=== PATIENT | male | born 1965 | race Caucasian/White ===

== ENCOUNTER 2019-11-10 12:36 | Outpatient (CLI) | payer OTHER, SELFPAY ==
--- NOTE | ~2019-11-10 | DEXA_ITS ---
Bone Density Report Name: Jorden Craig Age: 54 Sex: Male Ethnicity: White Date of : 1965 Indication: height loss; asthma or emphysema; Referring Provider: Saad, Kimberly Vidal Study: Bone densitometry was performed. Exam Date: November 10, 2019 Accession number: [id number] Bone Density: Region BMD T-score Z-score Classification AP Spine (L1-L4) 1.191 0.9 1.4 Normal Femoral Neck (Left) 0.812 -0.9 0.0 Normal Total Hip (Left) 1.135 0.7 1.1 Normal Total Hip Bilateral Avg 1.086 0.3 0.8 Normal Femoral Neck (Right) 0.812 -0.9 0.0 Normal Total Hip (Right) 1.035 0.0 0.4 Normal World Health Organization criteria for BMD impression classify patients as: Normal (T-score at or above -1.0), Osteopenia (T-score between -1.0 and -2.5), or Osteoporosis (T-score at or below -2.5). 10-year Fracture Risk: FRAX not reported because: All T-scores for Spine Total, Hip Total, Femoral Neck at or above -1.0 Clinical Information Provided by Patient: Smokes Has used the following medications: Vitamin D Has the following medical conditions: Asthma or Emphysema Patient maximum height was 73 No regular weight bearing exercise Impression: The patient has normal bone mass. The patient has risk factors, including: smoking. Discussion: BONE DENSITY IS ABOVE THE MINIMUM DESIRABLE LEVEL AT ALL SKELETAL SITES TESTED. This patient?s bone mineral density is above the minimum desirable level (T-score -1.0 or better) at all sites measured. The patient should follow a healthful lifestyle (good nutrition with adequate calcium and vitamin D, and appropriate weight-bearing exercise). Follow-Up: Consider repeating this study in 5 years or sooner if there is some new clinical indication. Reported by: [facility] on 11/10/2019 1:09:00 PM. Reviewed, dictated and finalized at location [facility]ar[facility]
== END 2019-11-10 12:37 | disposition home or self-care (01) ==
LOC: ANHIMG 12:39
PROVIDERS: PCP Family Medicine; Visit Provider Family Medicine
DX: M85.80 Other specified disorders of bone density and structure, unspecified site (principal)
CPT/HCPCS: 77080

== ENCOUNTER 2020-02-07 11:59 | Outpatient (CLI) | payer OTHER, SELFPAY ==
--- NOTE | ~2020-02-07 | MMUS_ITS ---
EXAMINATION: MM diagnostic ghanshyam RT w tom, US breast RT complete HISTORY: Right breast lump TECHNIQUE: Additional 3-D tomosynthesis images of the right breast were performed and synthetic 2-D i mages were generated. Comparison left MLO view performed. CAD analysis was submitted and interpreted. High resolution right breast ultrasound was performed. COMPARISON: None FINDINGS: MAMMOGRAPHIC FINDINGS: Breast composed of scattered areas of fibroglandular density. There is asymmetric right-sided gynecom astia. No discrete mass, architectural distortion or suspicious calcifications are identified. ULTRASOUND: Right breast ultrasound: There is prominent breast bud in the subareolar location of the right breast without discrete mass. No abnormal vascularity. IMPRESSION: 1. Probable benign asymmetric right gynecomastia. No evidence for malignancy. 2. Recommend 6 month follow-up right mammogram. BI-RADS category 3, probably benign findings. Reviewed, dictated and finalized at location A. IMPRESSION: 1. Probable benign asymmetric right gynecomastia. No evidence for malignancy. 2. Recommend 6 month follow-up right mammogram. BI-RADS category 3, probably benign findings.
== END 2020-02-07 12:00 | disposition home or self-care (01) ==
LOC: ANHIMG 12:09
PROVIDERS: PCP Family Medicine; Visit Provider Family Medicine
DX: N63.10 Unspecified lump in the right breast, unspecified quadrant (principal); M85.80 Other specified disorders of bone density and structure, unspecified site
CPT/HCPCS: 76641; 77061; 77065; G0279

== ENCOUNTER 2020-03-14 11:53 | Outpatient (CLI) | payer OTHER, SELFPAY ==
[2020-03-16 18:51] LABS: HIV 1 RNA PCR <1.30 Log cps/mL; HIV 1 RNA PCR <20 Copies/mL
== END 2020-03-14 11:54 | disposition home or self-care (01) ==
PROVIDERS: PCP Family Medicine; Visit Provider Internal Medicine Infectious Disease
DX: B20 Human immunodeficiency virus [HIV] disease (principal)
CPT/HCPCS: 36415; 87536

== ENCOUNTER 2020-05-10 12:30 | Outpatient (CLI) | payer OTHER, SELFPAY ==
[2020-05-13 11:30] LABS: CD19 Percentage 6 % (6-29); CD19, Absolute 98 cells/uL (110-660); CD3, Absolute 1181 cells/uL (840-3060); CD3, Percentage 78 % (57-85); CD3- CD16+ CD56+ 12 % (4-25); CD3- CD16+ CD56+ 184 cells/uL (70-760); CD4, Absolute 842 cells/uL (490-1740); CD4, Percentage 58 % (30-61); CD4/CD8 Ratio 2.92 (0.86-5.00); CD8, Absolute 288 cells/uL (180-1170); CD8, Percentage 20 % (12-42); Lymphocytes, Absolute 1513 cells/uL (850-3900)
== END 2020-05-10 12:31 | disposition home or self-care (01) ==
PROVIDERS: PCP Family Medicine; Visit Provider Internal Medicine Infectious Disease
DX: B20 Human immunodeficiency virus [HIV] disease (principal)
CPT/HCPCS: 36415; 86360

== ENCOUNTER 2020-09-07 10:49 | Outpatient (CLI) | payer OTHER, SELFPAY ==
[2020-09-12 19:59] LABS: HIV 1 RNA PCR 1.63 Log cps/mL; HIV 1 RNA PCR 42 Copies/mL
== END 2020-09-07 10:50 | disposition home or self-care (01) ==
PROVIDERS: PCP Family Medicine; Visit Provider Internal Medicine Infectious Disease
DX: B20 Human immunodeficiency virus [HIV] disease (principal)
CPT/HCPCS: 36415; 87536

== ENCOUNTER 2020-09-15 07:48 | Outpatient (CLI) | payer OTHER, SELFPAY ==
[2020-09-15 08:19] LABS: Alanine Aminotransferase 12 U/L (4-50); Albumin Level 4.3 g/dL (3.5-5.1); Alkaline Phosphatase 84 U/L (38-126); Anion Gap 6 mmol/L (8-16); Aspartate Amino Transferase 25 U/L (17-59); Bilirubin,Total 0.5 mg/dL (0.2-1.3); Blood Urea Nitrogen 17 mg/dL (9-20); Calcium 9.8 mg/dL (8.4-10.2); Carbon Dioxide 28 mmol/L (22-30); Chloride 103 mmol/L (98-107); Cholesterol 221 mg/dL (0-200); Estimated Glomerular Filt Rate 57; Glucose 172 mg/dL (75-110); HDL Direct 32 mg/dL; Potassium 4.1 mmol/L (3.4-5.0); Sodium 137 mmol/L (137-145); Triglycerides 325 mg/dL (<150)
[2020-09-15 08:30] LABS: LDL Cholesterol Direct 151 mg/dL
--- NOTE | 2020-09-15 08:40 | EST_ITS ---
Patient Info Name: Jorden Craig Age: 55 years : 1965 Gender: Male Ht: 72 in Wt: 243 lbs BSA: 2.40 m2 Exam Date: 09/15/2020 8:53 AM Exam Location: [facility] Patient Status: Outpatient Admit Date: 09/15/2020 Staff Ordering Physician: Martin Duncan DO Attending Provider: Martin Duncan DO Exercise Technologist: Ankita Ceballos RDCS Exercise Physician: Martin Duncan DO Exam Type: CA stress test treadmill Study Info Indications R07.9 - Chest pain, unspecified A treadmill exercise stress test was performed. Summary 1. 1. Negative [facility] exercise stress test for ischemic ST changes by ECG criteria. He achieved only 75% MPHR for age group which reduces sensitivity of the test. 2. 2. Reduced functional capacity, achieving 7 METs of workload. 3. 3. Appropriate HR response to exercise. 4. 4. Appropriate HR recovery at 1 minute post exercise. 5. 5. No imaging with stress testing. 6. 6. Patient informed of the above results. Protocol: [facility] ECG Details Stage: REST Duration (min): 8 min : 8 sec Speed (mph): 0.0 Grade (%): 0 HR (bpm): 70 SBP (mmHg): 105 DBP (mmHg): 61 METS: --- Stage: REST Duration (min): 10 min : 44 sec Speed (mph): 0.0 Grade (%): 0 HR (bpm): 82 SBP (mmHg): 105 DBP (mmHg): 61 METS: --- Stage: STAGE 1 Duration (min): 1 min : 0 sec Speed (mph): 1.7 Grade (%): 10 HR (bpm): 96 SBP (mmHg): 105 DBP (mmHg): 61 METS: --- Stage: STAGE 1 Duration (min): 2 min : 0 sec Speed (mph): 1.7 Grade (%): 10 HR (bpm): 104 SBP (mmHg): 105 DBP (mmHg): 61 METS: --- Stage: STAGE 1 Duration (min): 3 min : 0 sec Speed (mph): 1.7 Grade (%): 10 HR (bpm): 106 SBP (mmHg): 134 DBP (mmHg): 68 METS: --- Stage: STAGE 2 Duration (min): 1 min : 0 sec Speed (mph): 2.5 Grade (%): 12 HR (bpm): 116 SBP (mmHg): 134 DBP (mmHg): 68 METS: --- Stage: STAGE 2 Duration (min): 2 min : 0 sec Speed (mph): 2.5 Grade (%): 12 HR (bpm): 125 SBP (mmHg): 170 DBP (mmHg): 68 METS: --- Stage: STAGE 2 Duration (min): 2 min : 0 sec Speed (mph): 2.5 Grade (%): 12 HR (bpm): 125 SBP (mmHg): 170 DBP (mmHg): 68 METS: --- Stage: RECOVERY Duration (min): 0 min : 59 sec Speed (mph): 0.0 Grade (%): 0 HR (bpm): 107 SBP (mmHg): 170 DBP (mmHg): 68 METS: --- Stage: RECOVERY Duration (min): 1 min : 59 sec Speed (mph): 0.0 Grade (%): 0 HR (bpm): 92 SBP (mmHg): 170 DBP (mmHg): 68 METS: --- Stage: RECOVERY Duration (min): 2 min : 59 sec Speed (mph): 0.0 Grade (%): 0 HR (bpm): 79 SBP (mmHg): 170 DBP (mmHg): 68 METS: --- Stage: RECOVERY Duration (min): 3 min : 59 sec Speed (mph): 0.0 Grade (%): 0 HR (bpm): 87 SBP (mmHg): 170 DBP (mmHg): 68 METS: ---
--- NOTE | 2020-09-15 08:41 | ECHO_ITS ---
Patient Info Name: Jorden Craig Age: 55 years : 1965 Gender: Male Ht: 72 in Wt: 243 lbs BSA: 2.40 m2 HR: 70 bpm BP: 107 / 77 mmHg Technical Quality: Good Exam Date: 09/15/2020 9:34 AM Exam Location: [facility] Patient Status: Outpatient Admit Date: 09/15/2020 Staff Ordering Physician: Martin Duncan DO Deboner: Tayo Jackson, COLETTE, RT Attending Provider: Martin Duncan DO Referring Physician: Dakota BERUMEN; Exam Type: CA echo dop color flow w con Study Info Indications R06.00 - Dyspnea, unspecified Complete two-dimensional, color flow and Doppler transthoracic echocardiogram is performed. Strain analysis performed. Summary 1. Complete two-dimensional, color flow and Doppler transthoracic echocardiogram is performed. 2. Left ventricular chamber dimension is normal. 3. Left ventricular systolic function is normal, estimated at 60-65%. 4. There is moderately increased left ventricular wall thickness. 5. The left ventricular diastolic function is normal. 6. E/e' 10 is minimally elevated. 7. Global longitudinal strain is abnormal at -14.0%. 8. Severe lipomatous hypertrophy of the atrial septum. 9. There is trace pulmonic regurgitation. Left Ventricle Global longitudinal strain is abnormal at -14.0%. E/e' 10 is minimally elevated. Left ventricular chamber dimension is normal. Left ventricular systolic function is normal, estimated at 60-65%. There is moderately increased left ventricular wall thickness. The left ventricular diastolic function is normal. Right Ventricle Right ventricular chamber dimension is normal. Right ventricular systolic function is normal. Left Atria Left atrial chamber dimension is normal. Right Atria Right atrial chamber dimension is normal. Atrial Septum Severe lipomatous hypertrophy of the atrial septum. Aortic Valve The aortic valve is trileaflet. There is no aortic valve stenosis. There is no aortic valve regurgitation. Pulmonic Valve There is trace pulmonic regurgitation. Mitral Valve There is no mitral valve stenosis. There is no mitral valve regurgitation. Tricuspid Valve There is no tricuspid valve regurgitation. Pericardium/Pleural There is no pericardial effusion. Inferior Vena Cava Normal inferior vena cava with >50% collapse upon inspiration consistent with normal right atrial pressure, 5 mmHg. Aorta The aortic root size at the sinus of Valsalva is normal. Left Ventricular Outflow Tract Name Value Normal LVOT 2D LVOT Diameter 1.97 cm LVOT Doppler LVOT Peak Velocity 87.09 cm/s LVOT Peak Gradient 3 mmHg LVOT Mean Gradient 2 mmHg LVOT VTI 19.37 cm LVOT VTI/AV VTI Ratio 0.85 LVOT Stroke Volume 58.88 ml LVOT CO 4.20 l/min LVOT CI 1.75 L/min/m2 Mitral Valve Name Value
--- NOTE | 2020-09-15 09:41 | ECG_ITS ---
Measurements Intervals [place] Rate: 69 P: 37 DC: 171 QRS: 51 QRSD: 106 T: 40 QT: 404 QTc: 433 Interpretive Statements SINUS RHYTHM NORMAL ECG Electronically Signed On 09-15-2020 10:41:11 [employer] by Martin Duncan D.O.
== END 2020-09-15 07:49 | disposition home or self-care (01) ==
PROVIDERS: PCP Family Medicine; Visit Provider Internal Medicine Cardiovascular Disease
DX: E78.00 Pure hypercholesterolemia, unspecified (principal); R07.9 Chest pain, unspecified
CPT/HCPCS: 36415; 80053; 80061; 93005; 93017; 93306; C8929

== ENCOUNTER 2020-12-06 13:30 | Outpatient (CLI) | payer OTHER, SELFPAY ==
[2020-12-06 14:02] LABS: Alanine Aminotransferase 13 U/L (4-50); Albumin Level 4.6 g/dL (3.5-5.1); Alkaline Phosphatase 81 U/L (38-126); Anion Gap 7 mmol/L (8-16); Aspartate Amino Transferase 24 U/L (17-59); Bilirubin,Total 0.4 mg/dL (0.2-1.3); Blood Urea Nitrogen 16 mg/dL (9-20); Carbon Dioxide 28 mmol/L (22-30); Chloride 105 mmol/L (98-107); Cholesterol 205 mg/dL (0-200); Estimated Glomerular Filt Rate 49; Glucose 106 mg/dL (75-110); HDL Direct 38 mg/dL; Sodium 140 mmol/L (137-145); Triglycerides 320 mg/dL (<150)
[2020-12-06 14:13] LABS: LDL Cholesterol Direct 118 mg/dL
== END 2020-12-06 13:31 | disposition home or self-care (01) ==
PROVIDERS: PCP Family Medicine; Visit Provider Internal Medicine Cardiovascular Disease
DX: E78.00 Pure hypercholesterolemia, unspecified (principal)
CPT/HCPCS: 36415; 80053; 80061

== ENCOUNTER 2021-03-20 13:52 | Outpatient (CLI) | payer OTHER, SELFPAY ==
[2021-03-22 15:48] LABS: HIV 1 RNA PCR <1.30 Log cps/mL; HIV 1 RNA PCR <20 Copies/mL
== END 2021-03-20 13:53 | disposition home or self-care (01) ==
PROVIDERS: PCP Family Medicine; Visit Provider Internal Medicine Infectious Disease
DX: B20 Human immunodeficiency virus [HIV] disease (principal)
CPT/HCPCS: 36415; 87536

== ENCOUNTER 2021-09-10 13:11 | Outpatient (CLI) | payer OTHER, SELFPAY ==
[2021-09-12 17:01] LABS: HIV 1 RNA PCR <1.30 Log cps/mL; HIV 1 RNA PCR <20 Copies/mL
== END 2021-09-10 13:12 | disposition home or self-care (01) ==
LOC: ANHLAB 13:14
PROVIDERS: PCP Family Medicine; Visit Provider Internal Medicine Infectious Disease
DX: B20 Human immunodeficiency virus [HIV] disease (principal)
CPT/HCPCS: 36415; 87536

== ENCOUNTER 2022-07-29 14:26 | Outpatient (CLI) | payer OTHER, SELFPAY ==
--- NOTE | 2022-07-29 18:01 | WPDPFTINT ---
PFT Procedure Performed PFT Procedure Performed Plethysmography (Lung Vol) Diffusing Cap (DLCO) Flow Vol Loop Spirometry w/o Bronchodil PFT Interpretation This is a pulmonary function test with spirometry, plethysmography and diffusing capacity. The test was performed and results interpreted in accordance with the 2019 and 2005 ATS/ERS Task Force guidelines respectively using the Global Lung Function Initiative-2012 reference equations. Patient demonstrated good effort and cooperation. Reproducibility criteria were met. The quality of the spirometry maneuver was Grade A. Findings: Spirometry: There is decreased maximal expiratory airflow at low lung volumes with a mildly concave expiratory flow tracing. The contour the inspiratory flow tracing is truncated. The FVC is 2.91 L, 57% predicted. The FEV1 is 2.02 L, 51% predicted. This FEV1: FVC ratio 69%. Plethysmography: The total lung capacity is 3.81 L, 52% predicted. The functional residual capacity is 2.18 L, 56% predicted. The residual volume is 0.90 L, 39% predicted. Diffusing capacity: The diffusing capacity unadjusted for hemoglobin and carboxyhemoglobin is 16.0, 53% predicted. The diffusing capacity adjusted for alveolar volume is 4.13, 98% predicted. In comparison to previous pulmonary function test on 12/16/2018 the pre bronchodilator FVC has increased from 2.14 L to 2.91 L. The pre bronchodilator FEV1 is increased from 1.06 L to 2.02 L. The total lung capacity is unchanged from 4.43 L to 3.81 L. The functional residual capacity is decreased from 2.80 L to 2.18 L. The residual volume is decreased from 2.06 L to 0.90 L. The diffusing capacity unadjusted for hemoglobin and carboxyhemoglobin has increased from 10.9 to 16.0. The diffusing capacity adjusted for alveolar volume has decreased from 6.78 to 4.13. Impression: There is a combined obstructive and restrictive ventilatory abnormality. There are no guidelines to assign the severity of obstruction and restriction with a combined abnormality. In my opinion, given the mildly concave expiratory flow tracing and normal FEV1: FVC ratio and moderate restrictive abnormality I would state there is a mild obstructive abnormality and a moderate restrictive abnormality resulting in a moderately severe decrease in the FEV1. The diffusing capacity unadjusted for hemoglobin and carboxyhemoglobin is moderately decreased and normalizes when adjusted for alveolar volume. When compared to the previous pulmonary function testing on 12/16/2018 there has been a greater than anticipated time dependent decrease in the functional residual capacity, residual volume and diffusing capacity adjusted for alveolar volume with a greater than anticipated time dependent increase in the FVC, FEV1 and diffusing capacity unadjusted for hemoglobin and carboxyhemoglobin. There has been no significant change in the total lung capacity. Clinical correlation is recommended.
== END 2022-07-29 14:27 | disposition home or self-care (01) ==
LOC: ANHPFT 14:28
PROVIDERS: PCP Family Medicine; Visit Provider Physician Assistant
DX: F10.10 Alcohol abuse, uncomplicated (principal); R94.2 Abnormal results of pulmonary function studies
CPT/HCPCS: 94375; 94726; 94729

== ENCOUNTER 2022-10-08 13:24 | Emergency (ER) | payer OTHER, SELFPAY ==
[2022-10-08 13:30] VITALS: BP 133/87; PULSE 82; RESP 20; TEMP 36.4; O2SAT 96
[2022-10-08 15:32] VITALS: BP 157/88; PULSE 86; RESP 18; TEMP 36.3; O2SAT 98
--- NOTE | 2022-10-08 17:43 | ED.GENADULT ---
HPI - General Adult General Chief complaint: Dental/Oral Stated complaint: infected tooth Time Seen by Provider: 10/08/22 17:34 History of Present Illness HPI narrative: 57-year-old male with history of chronic dental pain presented to the department for evaluation of worsening left-sided dental pain and facial swelling. Patient states he has attempted to obtain follow-up with a dentist but states that this will not occur until January. Patient reports he does have history of dental caries. Patient denies any difficulty breathing or swallowing. Patient reports facial pain started just yesterday. Related Data Home Medications Medication Instructions Recorded Confirmed albuterol sulfate 90 mcg/actuation 2 puff inhalation Q4H PRN 09/06/20 12/06/20 aerosol inhaler (Ventolin HFA) aspirin 81 mg tablet,delayed 81 mg PO DAILY 09/06/20 12/06/20 release (Adult Low Dose Aspirin) canagliflozin 300 mg tablet 300 mg PO DAILY 09/06/20 12/06/20 (Invokana) fenofibrate nanocrystallized 145 145 mg PO DAILY 09/06/20 12/06/20 mg tablet naproxen 500 mg tablet 500 mg PO BID 09/06/20 12/06/20 zolpidem 10 mg tablet 10 mg PO ONCE 09/06/20 12/06/20 abacavir 600 mg-dolutegravir 50 1 tablet PO DAILY 09/07/20 12/06/20 mg-lamivudine 300 mg tablet (Triumeq) psyllium husk 0.4 gram capsule 0.4 g PO .every other day 09/07/20 12/06/20 (Fiber (psyllium husk)) triamterene 37.5 1 cap PO DAILY 09/07/20 12/06/20 mg-hydrochlorothiazide 25 mg capsule Allergies Allergy/AdvReac Type Severity Reaction Status Date / Time No Known Allergies Allergy Verified 09/20/22 14:51 Review of Systems Review of Systems: CONSTITUTIONAL: Denies fever, chills, or sweats. EYES: Denies visual changes, redness, or discharge. ENT: See HPI CARDIOVASCULAR: Denies chest pain, palpitations, or edema. RESPIRATORY: Denies cough or dyspnea. GASTROINTESTINAL: Denies abdominal pain, nausea, vomiting, or diarrhea. GENITOURINARY: Denies dysuria or hematuria. SKIN: Denies rash or itching. MUSCULOSKELETAL: Denies back pain, joint pain, or myalgia. NEUROLOGIC: Denies headache, numbness, or weakness. PSYCHIATRIC: Denies anxiety or depression. [facility] Past Medical History Medical History (Updated 10/09/22 @ 00:00 by Devon Bethea) Chest pain Hernia Human immunodeficiency virus infection Hypercholesterolemia Psoriasis Surgical History Surgical History (System 09/20/22 @ 14:51 by Fernando Garber) History of colonoscopy Family History Family History (System 09/20/22 @ 14:51 by Fernando Garber) Other Heart disease Cancer Mother Heart disease Lung disease Mother Family history of chronic obstructive pulmonary disease Father Family history of primary malignant neoplasm of liver Malignant neoplasm of prostate Social History Social History (System 09/20/22 @ 14:51 by Fernando Garber) Smoking packs per day: 0.5 Smoking cigarettes per day: 10.0 Years smoked: 35 Smoking pack-years: 17.50 Smoking status: Current every day smoker Alcohol intake: former Exam Narrative: APPEARANCE: Well appearing, no pain, no distress, well-nourished. HEAD: normocephalic, atraumatic. Left lower facial swelling. No submandibular swelling. EYES: PERRLA/EOMI, conjunctivae clear. NOSE: Normal no drainage EARS:TMS clear with good light reflex. THROAT: Pharynx clear, no exudate. NECK: Supple. No adenopathy, no masses. MUSCULOSKELETAL: Moves all extremities. Strength/ROM intact, No edema, No calf tenderness. NEURO: Alert. Cranial nerves II through XII intact. Grossly intact SKIN: Warm, dry. Normal Color Course Course Emergency Course: No visualized dental abscess this. Patient does have some left facial swelling over the lower mandible. No some tubular swelling. Suspect dental abscess. Differential diagnosis also considered was Ludewig's angina, parotiditis and facial cellulitis. Patient was started on clindamycin in the emergency department and encour
[2022-10-08] MEDS: CLINDAMYCIN HCL 150 MG CAP PO (17:47)
[2022-10-08] MEDS: HYDROcodone/acetaminophen (*CRX) 5-325 MG TABLET 1 TAB PO (17:47)
== END 2022-10-08 18:10 | disposition home or self-care (01) ==
PROVIDERS: Emergency Provider Emergency Medicine; PCP Physician Assistant
DX: K04.7 Periapical abscess without sinus (principal); E78.00 Pure hypercholesterolemia, unspecified; Z21 Asymptomatic human immunodeficiency virus [HIV] infection status; Z79.899 Other long term (current) drug therapy; Z79.82 Long term (current) use of aspirin
CPT/HCPCS: 99283; A9270

== ENCOUNTER 2022-10-09 23:22 | Emergency (ER) | payer OTHER, SELFPAY ==
--- NOTE | ~2022-10-09 | CT_ITS ---
CT Facial Bones Clinical Indication: Dental abscess Technique: Following intravenous demonstration of 100 cc of Omnipaque 350 contrast material, contiguo us axial scans were obtained through the facial bones followed by coronal and sagittal reconstruction s. Dose reduction technique was used on this scan by utilizing automated exposure control and iterati ve reconstruction technique. The dose-length product (DLP) was 969.64 mGy-cm. Findings: No fractures are identified. The visualized paranasal sinuses are clear. Intraorbital soft tissues appear normal. There is subcutaneous soft tissue edema and early phlegmonous change along the left mandibular region extending to the chin and left submental region. Shotty lymph nodes are present. No discrete abscess clearly identified. Parotid and submandibular glands are unremarkable. Parapharyngeal fat preserved bilaterally. No peritonsillar abscess. Thyroid gland unremarkable. Lung apices are unremarkable. Impression: Subcutaneous soft tissue edema and swelling with probable early phlegmonous change along the left man dibular region extending to the chin, compatible with cellulitis/soft tissue infection. No discrete, mature abscess evident. Reviewed, dictated and finalized at location . GATION ATTORNEY Impression: Subcutaneous soft tissue edema and swelling with probable early phlegmonous david nge along the left mandibular region extending to the chin, compatible with gabriella lulitis/soft tissue infection. No discrete, mature abscess evident.
[2022-10-09 23:27] VITALS: BP 115/84; PULSE 101; RESP 18; TEMP 36.6; O2SAT 97
[2022-10-10 01:00] VITALS: BP 150/84; PULSE 99; RESP 14; O2SAT 97
--- NOTE | 2022-10-10 01:38 | ED.GENADULT ---
HPI - General Adult General Chief complaint: Dental/Oral <Mague Sagastume APRN - Last Filed: 10/10/22 04:06> Stated complaint: toothache <Mague Sagastume APRN - Last Filed: 10/10/22 04:06> Time Seen by Provider: 10/10/22 00:58 <Mague Sagastume APRN - Last Filed: 10/10/22 04:06> History of Present Illness HPI narrative: Mr. Craig <Mague Sagastume APRN - Last Filed: 10/10/22 04:06> Related Data Home medications: Home Medications Medication Instructions Recorded Confirmed albuterol sulfate 90 mcg/actuation 2 puff inhalation Q4H PRN 09/06/20 12/06/20 aerosol inhaler (Ventolin HFA) aspirin 81 mg tablet,delayed 81 mg PO DAILY 09/06/20 12/06/20 release (Adult Low Dose Aspirin) canagliflozin 300 mg tablet 300 mg PO DAILY 09/06/20 12/06/20 (Invokana) fenofibrate nanocrystallized 145 145 mg PO DAILY 09/06/20 12/06/20 mg tablet naproxen 500 mg tablet 500 mg PO BID 09/06/20 12/06/20 zolpidem 10 mg tablet 10 mg PO ONCE 09/06/20 12/06/20 abacavir 600 mg-dolutegravir 50 1 tablet PO DAILY 09/07/20 12/06/20 mg-lamivudine 300 mg tablet (Triumeq) psyllium husk 0.4 gram capsule 0.4 g PO .every other day 09/07/20 12/06/20 (Fiber (psyllium husk)) triamterene 37.5 1 cap PO DAILY 09/07/20 12/06/20 mg-hydrochlorothiazide 25 mg capsule <Mague Sagastume APRN - Last Filed: 10/10/22 04:06> Allergies/adverse reactions: Allergies Allergy/AdvReac Type Severity Reaction Status Date / Time No Known Allergies Allergy Verified 09/20/22 14:51 <Mague Sagastume APRN - Last Filed: 10/10/22 04:06> [facility] Past Medical History Medical History: Medical History (Updated 10/11/22 @ 00:00 by Devon Bethea) Chest pain Hernia Human immunodeficiency virus infection Hypercholesterolemia Psoriasis <Mague SagastumeKENA - Last Filed: 10/10/22 04:06> Surgical History Surgical History: Surgical History (System 09/20/22 @ 14:51 by Fernando Garber) History of colonoscopy <Mague LangstonKENA dick - Last Filed: 10/10/22 04:06> Family History Family History: Family History (System 09/20/22 @ 14:51 by Fernando Garber) Other Heart disease Cancer Mother Heart disease Lung disease Mother Family history of chronic obstructive pulmonary disease Father Family history of primary malignant neoplasm of liver Malignant neoplasm of prostate <Mague AvilaKENA whitfield - Last Filed: 10/10/22 04:06> Social History Social History: Social History (System 09/20/22 @ 14:51 by Fernando Garber) Smoking packs per day: 0.5 Smoking cigarettes per day: 10.0 Years smoked: 35 Smoking pack-years: 17.50 Smoking status: Current every day smoker Alcohol intake: former <Mague ChamberlainDarwin AustinKENA whitfield - Last Filed: 10/10/22 04:06> Course Course Emergency Course: Patient returned with worsening erythema and swelling to his left jaw. Patient states that he has been taking his clindamycin at home as ordered. Patient denies any fever or chills. CT of soft tissue has been ordered and 1 dose of IV clindamycin has been given. CT is pending at this time and if negative patient can be discharged home to finish his remaining clindamycin. <Mague ChamberlainDarwin AustinKENA whitfield - Last Filed: 10/10/22 04:06> Reevaluation(s) Reevaluation #1: Patient does feel improved with treatment. Patient was treated with additional IV clindamycin. CT scan showed a phlegmon but no definitive abscess. Patient has only been on antibiotics for less than 24 hours. Patient was updated the results of his CT scan and was encouraged to have close follow-up. Patient was also encouraged to return to the emergency department if he had any worsening symptoms. All questions and concerns were addressed. Patient was well-appearing at time of discharge. <Jimmy Yun MD - Last Filed: 10/17/22 07:04> Vital Signs Vital signs: Vital Signs Temperature 97.8 F 10/09/
[2022-10-10 02:00] VITALS: BP 105/87; PULSE 84; RESP 14; O2SAT 94
[2022-10-10] MEDS: CLINDAMYCIN 600 MG/D5W 50 ML 600 MG/50 ML PIGGYBACK 100 MG IVPB (02:49)
[2022-10-10 03:00] VITALS: BP 110/89; PULSE 80; RESP 19; O2SAT 99
[2022-10-10 03:15] LABS: Basophils Percent Auto 0.3 % (0.2-1.2); Eosinophils Percent Auto 0.3 % (0-4.4); Hematocrit 42.8 % (42.0-52.0); Hemoglobin 14.5 g/dL (14.0-18.0); Immature Granulocyte Absolute 0.05 K/mm3 (0.00-0.031); Immature Granulocyte Percent A 0.4 % (0-0.5); Lymphocytes Absolute Auto 1.43 K/mm3 (0.9-3.2); Lymphocytes Percent Auto 12.1 % (18.3-44.2); Mean Corpuscular HGB Conc 33.9 g/dl (32-36); Mean Corpuscular Volume 91.5 fl (80-100); Mean Platelet Volume 8.8 fl (7.4-10.4); Monocytes Absolute Auto 0.7 K/mm3 (0.1-0.6); Monocytes Percent Auto 5.9 % (2.6-8.5); Neutrophils Absolute Auto 9.5 K/mm3 (1.3-6.7); Platelet Count Result 203 k/mm3 (150-375); Red Blood Count 4.68 M/mm3 (4.6-6.20); Red Cell Distribution Width 13.2 % (11.5-14.5); White Blood Count 11.8 K/mm3 (4.5-10.0)
[2022-10-10 03:29] LABS: Anion Gap 9 mmol/L (8-16); Blood Urea Nitrogen 15 mg/dL (9-20); Calcium 9.4 mg/dL (8.4-10.2); Carbon Dioxide 26 mmol/L (22-30); Chloride 97 mmol/L (98-107); Estimated CRCL calculation 80 ml/min; Estimated Glomerular Filt Rate > 60; Glucose 158 mg/dL (65-110); Potassium 3.5 mmol/L (3.4-5.0); Sodium 132 mmol/L (137-145)
[2022-10-10] MEDS: HYDROmorphone HCL INJ (*CRX) 1 MG/ML SYR 0.5 MG IV PUSH (05:29)
[2022-10-10 05:45] VITALS: BP 136/78; PULSE 90; RESP 12; O2SAT 99
== END 2022-10-10 05:45 | disposition home or self-care (01) ==
PROVIDERS: Emergency Provider Nurse Practitioner Adult Health; PCP Physician Assistant
DX: R22.0 Localized swelling, mass and lump, head (principal); K03.81 Cracked tooth; K02.9 Dental caries, unspecified; E78.00 Pure hypercholesterolemia, unspecified; Z21 Asymptomatic human immunodeficiency virus [HIV] infection status; Z79.82 Long term (current) use of aspirin; Z79.899 Other long term (current) drug therapy; Z79.84 Long term (current) use of oral hypoglycemic drugs; F17.210 Nicotine dependence, cigarettes, uncomplicated
CPT/HCPCS: 36415; 70487; 80048; 85025; 96365; 96375; 99284; J1170; Q9967

== ENCOUNTER 2023-08-19 10:41 | Outpatient (CLI) | payer OTHER, SELFPAY ==
--- NOTE | ~2023-08-19 | CT_ITS ---
CT Scan of the Chest without Contrast: Clinical Indication: Lung cancer screening, personal history of nicotine dependence Technique: Contiguous sections were acquired throughout the chest without intravenous contrast. Dose reduction technique was used on this scan by utilizing automated exposure control and iterative recon struction technique. The dose-length product (DLP) was 205.82 mGy-cm. Findings: There is no evidence of any significant mediastinal, hilar or axillary lymphadenopathy. The mediastin al soft tissues appear normal. There is no evidence of pleural or pericardial effusion. 3 mm left upper lobe pulmonary nodule present (axial image 38). There is cystic bronchiectatic change in the posterior medial left lower lobe. There is minimal paraseptal emphysema otherwise. Images through the upper abdomen reveal tiny gallstones. Impression: Lung RADS 2: Benign appearance. 12 month follow-up screening CT advised. Reviewed, dictated and finalized at [facility]. 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 12 month follow-up screening CT advised.
== END 2023-08-19 10:42 | disposition home or self-care (01) ==
PROVIDERS: PCP Physician Assistant; Visit Provider Internal Medicine Infectious Disease
DX: Z12.2 Encounter for screening for malignant neoplasm of respiratory organs (principal); F17.210 Nicotine dependence, cigarettes, uncomplicated
CPT/HCPCS: 71271

== ENCOUNTER 2023-12-12 12:34 | Outpatient (CLI) | payer OTHER, SELFPAY ==
--- NOTE | ~2023-12-12 | US_ITS ---
EXAMINATION: US renal BI DATE: 12/12/2023 13:05 INDICATION: Elevated serum creatinine TECHNIQUE: Multiple grayscale and Doppler ultrasound images of the kidneys were obtained. COMPARISON: None. FINDINGS: The right kidney measures 10.9 x 4.9 x 4.9 cm. The left kidney measures 12.3 x 4.7 x 4.7 cm . The kidneys demonstrate normal parenchymal echogenicity. There is no hydronephrosis. The bladder is normal. IMPRESSION: 1. Normal kidneys without hydronephrosis. Reviewed, dictated and finalized at location B. [facility]AX
== END 2023-12-12 12:35 | disposition home or self-care (01) ==
PROVIDERS: PCP Physician Assistant; Visit Provider Internal Medicine Infectious Disease
DX: R79.89 Other specified abnormal findings of blood chemistry (principal)
CPT/HCPCS: 76775